=== PATIENT | male | born 1995 | race Caucasian/White ===

== ENCOUNTER → 2023-08-01 | Outpatient (CLI) | payer OTHER ==
--- NOTE | 2023-08-01 10:23 | MR ---
EXAMINATION TYPE: MR cspine/tspine wo con DATE OF EXAM: 08/01/2023 COMPARISON: NONE HISTORY: 27-year-old male cervicalgia/thoracic pain. NO prior, lifting injury 4 years ago, pain shoot ing down neck and back, headaches TECHNIQUE: Multiplanar, multisequence images of the cervical and thoracic spine were obtained without IV contrast. FINDINGS: Cervical spine: No cranial cervical junction of the body, predental space widening, or prevertebral soft tissue swell ing. Preserved alignment of the cervical spine. No abnormal bone marrow signal abnormality. Disc interspaces are maintained. There may be very minimal early intervertebral disc desiccation at C 3-C4 but there is no disc herniation identified in the cervical spine. No significant neuroforaminal stenosis. Normal course, caliber, and signal intensity of the cervical spinal cord. Thoracic spine: Slightly exaggerated mid thoracic kyphosis with mild early intervertebral disc desiccation mid thorac ic spine. Vertebral body heights are preserved and alignment is maintained. Small left paracentral disc protrusions are noted at both T3-T4 and T5-T6. While these abut the left ventral cord, there is no mass effect on the cord or significant spinal canal stenosis. No significant neuroforaminal stenosis. Normal course, caliber, signal intensity of the spinal cord aligned for some motion artifact. Conus m edullaris is normal. COMBINED IMPRESSION: Cervical spine: 1. Possible very minimal early intervertebral disc desiccation at C3-C4. Otherwise, unremarkable MRI cervical spine. Thoracic spine: 2. Very mild early intervertebral disc desiccation the thoracic spine. Slightly accentuated midthorac ic kyphosis. 3. Small left paracentral disc herniations at T3-T4 and T5-T6 do not contribute any significant spina l canal or foraminal stenosis.
== END | disposition home or self-care (01) ==
LOC: RADMRIMAIN 07:33
PROVIDERS: ATTEND Family Medicine
DX: M51.24 Other intervertebral disc displacement, thoracic region (principal); M54.2 Cervicalgia
CPT/HCPCS: 72141; 72146

== ENCOUNTER → 2024-02-11 | Outpatient (CLI) | payer OTHER ==
--- NOTE | 2024-02-11 10:03 | MR ---
EXAMINATION TYPE: MR lumbar spine wo con DATE OF EXAM: 02/11/2024 COMPARISON: NONE CLINICAL INDICATION: Male, 28 years old with history of M54.50 LOW BACK PAIN PHH, Lower back pain, BL E radiculopathy, hx injury. TECHNIQUE: T1 and T2 axial and sagittal images of the lumbar spine are submitted. FINDINGS: There is no abnormal signal seen within the visualized spinal cord or paraspinal soft tissu es. Straightening of the normal lumbar lordosis is nonspecific. Can occasionally be associated with m uscular spasm. Thickening of the left adrenal gland most likely basis of benign hyperplasia or tiny a denoma. At L1-2 there is no evidence of degenerative disc disease, disc herniation, canal stenosis or foramin al encroachment. At L2-3 there is no evidence of degenerative disc disease, disc herniation, canal stenosis or foramin al encroachment At L3-4 there is no evidence of degenerative disc disease, disc herniation, canal stenosis or foramin al encroachment At L4-5 there is disc desiccation and small annular tear. Broad-based central disc bulging or protrus ion with no focal herniation. Mild effacement of thecal sac but no canal stenosis or foraminal encroa chment. At L5-S1 there is no evidence of degenerative disc disease, disc herniation, canal stenosis or forami nal encroachment IMPRESSION: 1. At L4-5 there is disc desiccation and small annular tear. Broad-based central disc bulging or prot rusion with with mild effacement of thecal sac but no canal stenosis or foraminal encroachment. [facility], , 02/11/2024 10:01 AM
== END | disposition home or self-care (01) ==
LOC: RADMRIMAIN 07:48
PROVIDERS: ATTEND Family Medicine
DX: M51.16 Intervertebral disc disorders with radiculopathy, lumbar region (principal)
CPT/HCPCS: 72148